=== PATIENT | female | born 1985 | race Caucasian/White ===

== ENCOUNTER 2021-10-07 13:24 | Emergency (ER) | payer BC, SELFPAY ==
[2021-10-07 13:30] VITALS: BP 139/78; PULSE 81; RESP 18; TEMP 37.2; O2SAT 100; BMI 26.2
--- NOTE | 2021-10-07 13:34 | ECG_ITS ---
Test Reason : LAMICTAL OD Blood Pressure : / mmHG Vent. Rate : 074 BPM Atrial Rate : 074 BPM P-R Int : 144 ms QRS Dur : 096 ms QT Int : 370 ms P-R-T Axes : 064 056 047 degrees QTc Int : 410 ms Normal sinus rhythm Normal ECG No significant changes when compared with the previous EKG of 12 jan 2015 Referred By: Generic ED Physician Electronically Signed By:LAURI TAPIA
--- NOTE | 2021-10-07 16:04 | ED_ITS ---
HPI - Overdose General Chief Complaint: Overdose Stated Complaint: anxiety accidently took 225mg of Lamictal Time Seen by Provider: 10/07/21 15:52 Source: patient Mode of arrival: ambulatory Limitations: no limitations History of Present Illness HPI Narrative: 36-year-old female with history of anxiety, depression is here after accidentally taking extra lamictal yesterday/today. Patient tells me she has been taking 150 mg of Lamictal for years. She accidentally took 220 mg yesterday and 220 mg today. After taking the dose today she felt anxious, dizzy, states I feel like I am drugged with nausea. No vomiting. Patient called her prescriber and was recommended to come to the emergency room to have a Lamictal level drawn. Related Data Allergies Allergy/AdvReac Type Severity Reaction Status Date / Time amoxicillin [AMOXICILLIN] Allergy Unknown RASH Verified 10/07/21 13:30 Review of Systems Review of Systems: Yes all other systems are reviewed and are negative Constitutional: Constitutional: Reports no additional constitutional complaints, Denies body ache(s), Denies chills, Denies fever(s), Denies head ache(s) and Reports weakness Eyes: Eyes: Reports no additional eye complaints and Denies change in vision ENT: Reports system reviewed and no additional complaints, except as documented, Reports dizziness, Denies headache(s), Denies nasal congestion, Denies nasal discharge and Denies neck pain Cardiovascular: Cardiovascular: Reports no additional cardiovascular complaints, Denies chest pain, Denies leg edema and Denies dyspnea Respiratory: Respiratory: Reports no additional respiratory complaints, Denies cough and Denies dyspnea Gastrointestinal: Gastrointestinal: Reports no additional gastrointestinal complaints, Denies abdominal pain, Denies diarrhea, Denies nausea and Denies vomiting Genitourinary: Genitourinary: Reports no additional female genitourinary complaints and Denies urinary incontinence Musculoskeletal: Musculoskeletal: Reports no additional musculoskeletal complaints, Denies back pain, Denies arthralgias, Denies joint swelling, Denies neck pain, Denies numbness and Denies tingling Integumentary/Breasts: Skin/Breast: Reports system reviewed and no additional complaints, except as docu and Denies rash Neurologic: Reports system reviewed and no additional complaints, except as documented, Denies Abnormal speech present, Reports dizziness, Denies headache(s), Denies numbness, Denies tingling and Reports weakness Psychiatric: Psychiatric: Reports anxiety [facility] Past Medical History Attestation statement: The following information was validated with the patient. Source: old records reviewed and nursing notes reviewed Social History Social History Advance Directives: No Advance Directives Information Provided: No Physical Exam Vital Signs: Vital Signs: Last Vital Signs Temp 98.9 F 10/07/21 13:30 Pulse 81 10/07/21 13:30 Resp 18 10/07/21 13:30 BP 139/78 10/07/21 13:30 Pulse Ox 100 10/07/21 13:30 O2 Del Method 10/07/21 13:30 BMI result Body Mass Index 26.2 Const: General: cooperative, healthy appearing, comfortable and no acute dist ress Orientation/consciousness: patient oriented x3 Limitations: no limitations HEENT: Head: Yes normal to inspection Ears: hearing grossly normal bilaterally General nose exam: Normal external nose present Face and sinus: Yes normal facial exam Mouth: Normal oral and palatal mucosa present Throat: Yes posterior oropharynx normal Eyes: General: appearance normal, both eyes and all related structures Pupils: Equal, round and reactive pupils present Neck: Neck: Yes normal visual inspection Chest: Chest palpation & inspection: normal inspection of the chest Resp: Effort & Inspection: normal respiratory effort Auscultation: clear to auscultation bilaterally Cardio: Rate: regular rate Rhythm: regular rhythm Peripheral pulses: Peripheral pulses 2+ throughout GI: Inspection: Yes normal to inspection Palpation (GI): Soft to palpation and nontender Auscultation: normal bowel sounds Back/Spine/Pelvis: Thoracic/Lumbar Spine: thoracic and lumbar spine normal to inspection Skin: General skin exam: no rashes or lesions noted Neuro: General: patient oriented x3, no focal motor deficits and normal sensation to monofilament Cranial nerves: Yes Equal, round and reactive pupils present Cognition (Neuro): normal cognition Speech: No Abnormal speech present Gait exam (Neuro): Normal gait present Motor exam (neuro): 5/5 motor strength present throughout Extrem: General: Yes normal to inspection Course Course Course Narrative: Patient not want to wait until the BMP was resulted. The plan was for me to call her with the Lamictal resolved the next 1-2 days. EKG normal. The patient was discharged. After the patient left the department the nurse was notified that the wrong tube was sent down to the lab for the Lamictal level. The patient will need to be redrawn. The nurse called the patient spoke to her over the phone. The patient does not want to return to have her labs recheck. She will return if she feels worse. The doses that she took are actually less than the max daily dose, patient is well-appearing, vitals are stable. I Believe this is reasonable MDM - Overdose MDM Narrative Medical decision making narrative: 36-year-old female here after taking 2 days of extra doses of Lamictal accidentally. Max dose in 24 hours was 220mg. Patient reports mild dizziness, brain fog, nausea and feeling drugged. Vitals are stable. Normal exam. Patient here because was recommended that she get a Lamictal level. Unfortunately are Lamictal levels are send out labs in take several days to come back so I am not sure that this would be beneficial but patient is insistent on having the lab. Will order Lamictal level, [facility] Medical Records Attestation: I reviewed the patient's medical records. Lab Data Attestation: I reviewed the patient's lab results. Result diagrams: 10/07/21 16:36 Labs: Lab Results 10/07/21 Range/Units 16:36 Sodium 138 (135-145) mmol/L Potassium 4.9 (3.3-5.1) mmol/L Chloride 105 (96-108) mmol/L Carbon Dioxide 25 (22-29) mmol/L Anion Gap 13 (12-20) BUN 9 (9-16) mg/dL Creatinine 0.75 (0.5-1.4) mg/dL Estim Creat Clear Calc 81.8 Estimated GFR > 60 Random Glucose 101 (60-115) mg/dL Calcium 10.3 H (8.4-10.2) mg/dL ECG Data Attestation: I personally reviewed and interpreted this ECG as follows: ECG interpretation date: 10/07/21 ECG interpretation time: 13:37 Interpretation: Normal sinus rhythm with a rate of 74, normal MA, normal QRS, normal QT Discharge Plan Discharge Clinical Impression: Accidental drug ingestion Patient Disposition: Home, Self-Care Instructions: Adult Overdose (ED) Additional Instructions: I will call you tomorrow. Do not take the Lamictal until we talk If your blood work (electrolytes) is abnormal today I will call you to return Referrals: Nasreen Horton, [Primary Care Provider] - 10 days (as needed) Interventions: ED Discharge Assessment Last Done: 10/07/21 16:41 Discharge Date/Time: 10/07/21 17:00
[2021-10-07 16:59] LABS: Anion Gap 13 (12-20); Blood Urea Nitrogen 9 mg/dL (9-16); Calcium 10.3 mg/dL (8.4-10.2); Carbon Dioxide 25 mmol/L (22-29); Chloride 105 mmol/L (96-108); Creatinine Clr Calc Pharmacy 81.8; Estimated Glomerular Filt Rate > 60; Glucose Random 101 mg/dL (60-115); Potassium 4.9 mmol/L (3.3-5.1); Sodium 138 mmol/L (135-145)
--- NOTE | 2021-10-07 17:08 | PC.NURSE ---
pt called on cellphone d/t lab being unable to run lamictal level on tube it was drawn on, asked if she would be willing to return to have lab redrawn, pt sts no thank you, we will return if i begin to not feel well .
== END 2021-10-07 17:00 | disposition home or self-care (01) ==
PROVIDERS: Nurse Practitioner Family; Emergency Provider Emergency Medicine; PCP Family Medicine
DX: T42.6X1A Poisoning by other antiepileptic and sedative-hypnotic drugs, accidental (unintentional), initial encounter (principal); Y92.9 Unspecified place or not applicable; Z79.899 Other long term (current) drug therapy
CPT/HCPCS: 36415; 80048; 93005; 99283